=== PATIENT | male | born 1960 | race Caucasian/White ===

== ENCOUNTER 2023-05-09 06:28 | Outpatient (RCR) | payer OTHER, SELFPAY | END 2023-05-09 23:59 | disposition home or self-care (01) | LOC: RPT 06:28 | PROVIDERS: ATTENDING PHYSICIAN Urology; FAMILY PHYSICIAN Internal Medicine Geriatric Medicine | DX: C61 Malignant neoplasm of prostate (principal); M62.89 Other specified disorders of muscle; Z73.6 Limitation of activities due to disability | CPT/HCPCS: 97162; 97530 ==

== ENCOUNTER 2023-06-01 06:14 | Day surgery (SDC) | payer OTHER, SELFPAY ==
[2023-05-16 08:42] LABS: Hematocrit 41.5 % (39.0-52.0); Hemoglobin 14.4 g/dL (13.0-18.0); Mean Corp Hgb Conc. 34.7 g/dL (33.0-37.0); Mean Corpuscular Volume 92.2 fL (80.0-94.0); Mean Platelet Volume 10.3 fL (7.4-10.4); Platelet Count 238 10^3/uL (130-400); Red Cell Dist. Width 12.4 % (11.5-14.5); White Blood Cell Count 6.1 10^3/uL (4.8-10.8)
[2023-05-16 08:54] LABS: Urine Albumin Negative (Neg - Trace); Urine Bilirubin Negative (Negative); Urine Character Clear (Clear); Urine Color Yellow; Urine Glucose Negative (Negative); Urine Ketone Negative (Negative); Urine Leukocyte Trace (Negative); Urine Nitrite Negative (Negative); Urine Occult Blood Negative (Negative); Urine Specific Gravity 1.025 (<1.030); Urine Urobilinogen Negative (Neg - 1+)
[2023-05-16 09:01] LABS: INR 1.09
[2023-05-16 09:02] LABS: APTT 31.8 Sec (23.4-35.0)
[2023-05-16 09:18] LABS: Blood Urea Nitrogen 22 mg/dl (9-20); Calcium 9.3 mg/dl (8.4-10.2); Carbon Dioxide 25 mmol/L (22-30); Chloride 108 mmol/L (98-107); Glucose 88 mg/dl (70-99); Sodium 140 mmol/L (135-145); eGFR > 60.00
[2023-05-16 09:40] LABS: Potassium 4.6 mmol/L (3.5-5.1)
[2023-05-16 10:48] LABS: Urine Red Blood Cell 0-2 /HPF (0-2); Urine White Cell 0-2 /HPF (0-5)
[2023-05-16 14:05] VITALS: BMI 30.1
--- NOTE | 2023-05-25 11:56 | CM ---
Patient is scheduled for a Robotic Prostatectomy on 06/01/23. Spoke with patient prior to surgery via telephone to complete case management assessment and assess for discharge planning needs. Patient reports that he lives with his in a two story
home. There are either two or six steps to enter and a flight of steps to the second floor. He currently functions independently. He has no DME and has never had VN services. He has a prescription plan and uses [facility] in [place].
PCP is Luiza Ryder
Discussed discharge plans. Patient plans to return home at discharge. He states that he will have support from his (who works from home) when he goes home. He has no discharge planning concerns at this time. Discussed possible need for VN
services and reviewed options. Patient states that if services are needed, he has no preference for an agency. Discussed using VN for services and he is agreeable.
[place] text sent to VN liaison, Gracia Lincoln, alerting her to surgery date and possible need for VN.
[2023-06-01] VITALS (11 sets, daily range): BP systolic 116–140; BP diastolic 64–85; BMI 30.1
[2023-06-01] MEDS: NORMOSOL-R 1000 IV (06:35)
--- NOTE | 2023-06-01 13:16 | W.IMMPOSTOP ---
Surgical Immed Post Op Note
-
Primary Surgeon: Jam
Assisting Surgeon: Tu
Pre-op Diagnosis: prostate cancer
Post-op Diagnosis: same
Procedure Performed: Robotic prostatectomy, lymph node dissection
Anesthesia Type: general
Specimen / Cultures: prostate, LNs, frozen specimens
Estimated Blood Loss: 100cc
Complications: none
Operative Findings: possible EPE at L post margin
[2023-06-01] MEDS: DILAUDID 0.5 MG IV (13:27)
[2023-06-01 14:02] LABS: Hematocrit 38.1 % (39.0-52.0); Hemoglobin 13.7 g/dL (13.0-18.0)
[2023-06-01] MEDS: NSS 1000 IV ×2 (14:15→21:06)
[2023-06-01 14:16] LABS: Blood Urea Nitrogen 18 mg/dl (9-20); Calcium 8.5 mg/dl (8.4-10.2); Carbon Dioxide 25 mmol/L (22-30); Chloride 106 mmol/L (98-107); Estimated Creatinine Clearance 92 ml/min; Glucose 162 mg/dl (70-99); Potassium 4.1 mmol/L (3.5-5.1); Sodium 136 mmol/L (135-145); eGFR > 60.00
[2023-06-01] MEDS: TORADOL 15 MG IV ×2 (14:18→21:01)
--- NOTE | 2023-06-01 15:00 | PTCARENOTE ---
pt admitted to room 2101 from the PACU at 1430. pt arrived drowsy but easily arousable. oriented to room, call cuevas, and plan of care with verbalized understanding. admission database and assessment as documented. tolerating ice chips and sips
of water. De Anda catheter patent and draining punch colored urine. pt c/o feeling the urge to void. will monitor.
[2023-06-01] MEDS: SENOKOT 8.59999999999999964 MG PO ×2 (21:00)
[2023-06-01] MEDS: DETROL LA 4 MG PO (22:17)
[2023-06-01] MEDS: MORPHINE SULFATE 4 MG IV (23:04)
[2023-06-02] MEDS: TORADOL IV (02:18)
[2023-06-02 03:35] VITALS: BP 118/71
[2023-06-02 05:45] LABS: Hematocrit 33.2 % (39.0-52.0); Hemoglobin 11.5 g/dL (13.0-18.0); Mean Corp Hgb Conc. 34.6 g/dL (33.0-37.0); Mean Corpuscular Volume 92.5 fL (80.0-94.0); Platelet Count 207 10^3/uL (130-400); Red Blood Cell Count 3.59 10^6/uL (4.70-6.10); Red Cell Dist. Width 12.8 % (11.5-14.5)
[2023-06-02 06:10] LABS: Blood Urea Nitrogen 20 mg/dl (9-20); Carbon Dioxide 28 mmol/L (22-30); Chloride 104 mmol/L (98-107); Estimated Creatinine Clearance 92 ml/min; Glucose 107 mg/dl (70-99); Potassium 3.8 mmol/L (3.5-5.1); Sodium 137 mmol/L (135-145); eGFR > 60.00
[2023-06-02 07:00] VITALS: BP 113/64
[2023-06-02] MEDS: TORADOL 15 MG IV ×2 (08:13→13:22)
--- NOTE | 2023-06-02 08:41 | VNURNOTE ---
Home Health Liaison met with patient's spouse Piedad 05/31 at 1100 to discuss [facility] nurse visits, schedule and homebound status. Piedad is agreeable and understands that visits at home will be 2-3 x per week to assess and teach medical management and
catheter care. Patient was in OR at time of visit.
[facility] brochure provided with contact information. Piedad is aware that [facility] will contact them for start of care in 1-2 days after discharge from .
[facility] referral completed in [facility].
--- NOTE | 2023-06-02 10:17 | W.PN.URO.CBU ---
Today's Communication / Plan
-
Discharge
Assessment / Plan
-
62M with prostate cancer
POD 1 s/p RALP/PLND
- OOB/amb
- Regular diet
- PO pain meds
- Segal to leg bag, home with segal, VN
Discharge
Diagnosis
-
Date of Service: June 02, 2023
-
Patient Diagnosis: Prostate cancer
Post Op Day: 1 s/p RALP
Subjective
-
pain controlled
tolerating diet
ambulated
Objective
-
Vital Signs
Temp Pulse Resp BP Pulse Ox
98.0 F 82 18 113/64 99
06/02/23 07:00 06/02/23 07:00 06/02/23 07:00 06/02/23 07:00 06/02/23 07:00
Intake and Output
06/01/23 06/02/23 06/03/23
06:59 06:59 06:59
Intake Total 1584 / 1584
Output Total 735 / 735
Balance 849 / 849
Intake:
Oral fluids 914 / 914
IV fluids (Total) 670 / 670
norm 170 / 170
Output:
Urine, Segal 735 / 735
Laboratory Results
06/02/23 05:04
06/02/23 05:04
Physical Exam
-
General - well developed, well nourished, no acute distress
Chest - clear bilaterally
Abdomen - soft, non-tender
Segal in place, clear urine
Skin - warm & dry with no rash
Neuro - AOx3, no motor deficits
Incision - clean, dry
Dressing - clean, dry, intact
--- NOTE | 2023-06-02 10:58 | VNURNOTE ---
Home Health Liaison met with patient at to discuss VN nurse visits, schedule and homebound status. Patient is agreeable and understands visits will be 2-3x per week to assess and teach segal catheter management.
[2023-06-02 11:10] VITALS: BP 126/70
--- NOTE | 2023-06-02 14:24 | CM ---
Initial assessment completed with patient who lives with his in a 2 story home with basement, 2 steps to enter, B/B on and 1/2 bath on . Patient was independent SOCIAL SERVICE LIAISON, drives and works. Has a RW in the home, no services, no psychiatric
history. Pharmacy is [facility] on [facility]. in [place], PCP is Dr. Burr with [facility]. Patient will need HH VN.
--- NOTE | 2023-06-02 14:30 | CM ---
Patient has been medically cleared for discharge to home with [facility] VN services. Patient has arranged for transport home.
[2023-06-02 15:05] VITALS: BP 121/71
== END 2023-06-02 16:05 | disposition home or self-care (01) ==
LOC: SDS 06:14
PROVIDERS: ATTENDING PHYSICIAN Urology; FAMILY PHYSICIAN Internal Medicine Geriatric Medicine
DX: C61 Malignant neoplasm of prostate (principal); C77.5 Secondary and unspecified malignant neoplasm of intrapelvic lymph nodes
CPT/HCPCS: 55866; 38571; 88305; 88307; 88309; 88332; 36415; 80048; 81003; 81015; 85014; 85018; 85027; 85610; 85730; 86850; 86900; 86901; 88331; 88341; 88342; 88344; 93005

== ENCOUNTER 2023-07-14 10:30 | Outpatient (RCR) | payer OTHER, SELFPAY | END 2023-07-14 23:59 | disposition home or self-care (01) | LOC: RPT 10:30 | PROVIDERS: ATTENDING PHYSICIAN Urology; FAMILY PHYSICIAN Internal Medicine Geriatric Medicine | DX: C61 Malignant neoplasm of prostate (principal); M62.89 Other specified disorders of muscle; N39.3 Stress incontinence (female) (male); Z73.6 Limitation of activities due to disability | CPT/HCPCS: 97140; 97164; 97530 ==

== ENCOUNTER 2023-07-28 06:45 | Outpatient (RCR) | payer OTHER, SELFPAY | END 2023-07-28 23:59 | disposition home or self-care (01) | LOC: RPT 06:45 | PROVIDERS: ATTENDING PHYSICIAN Urology; FAMILY PHYSICIAN Internal Medicine Geriatric Medicine | DX: M62.89 Other specified disorders of muscle (principal); C61 Malignant neoplasm of prostate; Z73.6 Limitation of activities due to disability | CPT/HCPCS: 97110; 97140; 97530 ==

== ENCOUNTER 2024-02-07 23:56 | Emergency (ER) | payer OTHER, SELFPAY ==
[2024-02-07 23:59] VITALS: BP 159/89
[2024-02-08 00:26] VITALS: BP 153/94
--- NOTE | 2024-02-08 00:28 | ED.GENMED ---
History of Present Illness
<REJI Roach - Last Filed: 02/08/24 02:35>
General
Chief Complaint: Dizziness
Source: patient
Time Seen by Provider: 02/08/24 00:21
Nursing documentation reviewed up to this point in time: agreed with
History of Present Illness
History of Present Illness:
Pt is a 63 yo M with a history of prostate cancer who presents to the emergency department with dizziness for the past few hours. Pt states that he woke up to go to the bathroom during the night and when he went back to bed and laid down, he began
to feel dizzy. Pt describes the dizziness as the room spinning. He explains that it continued to occur when he would open his eyes after sleeping. Pt states that it is worse when he laid down. Pt states that is has been constant since it began, but
states that it is now getting better. Pt denies experiencing this before. Pt also admits to associated nausea and headache that began with the dizziness. He describes the headache as being very mild and is diffusely across his head. Pt denies
syncope, changes in vision, vomiting, fever, chills, weakness, chest pain, changes in hearing, or recent illness.
Pt states that he finished proton therapy in December for treatment of his prostate cancer.
Review of Systems
<REJI Roach - Last Filed: 02/08/24 02:35>
Review of Systems
Allergies reviewed?: Yes
Constitutional: Reports no symptoms
EENT: Reports no symptoms
Respiratory: Reports no symptoms
Cardiac: Reports no symptoms
ABD/GI: Reports nausea
Neurological: Reports dizzy and headache
Phy Exam
<REJI Roach - Last Filed: 02/08/24 02:35>
General Physical Exam
General Presentation: well appearing
General age: appears stated age
General Skin: warm
General Habitus: normal
General Mental: alert
General Hydration: appears well hydrated
Eye Exam
Eye Exam: PERRL, EOMI and conjunctiva normal
Eye Exam General: PERRL: bilateral and EOM intact: bilateral
Cardiovascular Exam
Cardiovascular Exam: regular rate/rhythm
Pulmonary Exam
Pulmonary Exam: lungs clear
Course
<Marnie Forbes [facility] - Last Filed: 02/08/24 02:35>
Orders/Labs/Results
Orders:
Orders
02/08/24
CT Head W/o Iv Contrast Urgent
Reason For Exam: vertigo
02/08/24 00:58
CBC/With Diff [Complete Blood Count/With Diff] Urgent
Comprehensive Metabolic Panel Urgent
02/08/24 02:47
Meclizine [Antivert] 25 mg PO NOW STA
Abnormal Lab Results
02/08/24
00:58
WBC 4.4 L 10^3/uL
(4.8-10.8)
RBC 3.65 L 10^6/uL
(4.70-6.10)
Hgb 12.1 L g/dL
(13.0-18.0)
Hct 34.6 L %
(39.0-52.0)
MCV 94.8 H fL
(80.0-94.0)
MCH 33.2 H pg
(27.0-31.0)
Absolute Lymphs (auto) 0.3 L 10^3/uL
(1.2-3.4)
Immature Gran % 0.7 H %
(0-0.5)
Neutrophils % 79.0 H %
(42.2-75.2)
Lymphocytes % 7.7 L %
(20.5-51.1)
Monocytes % 10.0 H %
(1.7-9.3)
Chloride 109 H mmol/L
(98-107)
BUN 24 H mg/dl
(9-20)
Glucose 110 H mg/dl
(70-99)
02/08/24 00:58
02/08/24 00:58
Vital Signs
Initial and Last Documented VS:
Initial Vital Signs
Temp Pulse Resp BP Pulse Ox
98.6 F 72 20 159/89 98
02/07/24 23:59 02/07/24 23:59 02/07/24 23:59 02/07/24 23:59 02/07/24 23:59
Last Documented Vital Signs
Temp Pulse Resp BP Pulse Ox
98.6 F 57 18 132/88 99
02/07/24 23:59 02/08/24 02:43 02/08/24 02:43 02/08/24 01:05 02/08/24 02:43
<Sammie Peterson, DO - Last Filed: 02/08/24 02:51>
Orders/Labs/Results
Orders:
Orders
02/08/24
CT Head W/o Iv Contrast Urgent
Reason For Exam: vertigo
02/08/24 00:58
CBC/With Diff [Complete Blood Count/With Diff] Urgent
Comprehensive Metabolic Panel Urgent
02/08/24 02:47
Meclizine [Antivert] 25 mg PO NOW STA
Abnormal Lab Results
02/08/24
00:58
WBC 4.4 L 10^3/uL
(4.8-10.8)
RBC 3.65 L 10^6/uL
(4.70-6.10)
Hgb 12.1 L g/dL
(13.0-18.0)
Hct 34.6 L %
(39.0-52.0)
MCV 94.8 H fL
(80.0-94.0)
MCH 33.2 H pg
(27.0-31.0)
Absolute Lymphs (auto) 0.3 L 10^3/uL
(1.2-3.4)
Immature Gran % 0.7 H %
(0-0.5)
Neutrophils % 79.0 H %
(42.2-75.2)
Lymphocytes % 7.7 L %
(20.5-51.1)
Monocytes % 10.0 H %
(1.7-9.3)
Chloride 109 H mmol/L
(98-107)
BUN 24 H mg/dl
(9-20)
Glucose 110 H mg/dl
(70-99)
02/08/24 00:58
02/08/24 00:58
Vital Signs
Initial and Last Documented VS:
Initial Vital Signs
Temp Pulse Resp BP Pulse Ox
98.6 F 72 20 159/89 98
02/07/24 23:59 02/07/24 23:59 02/07/24 23:59 02/07/24 23:59 02/07/24 23:59
Last Documented Vital Signs
Temp Pulse Resp BP Pulse Ox
98.6 F 57 18 132/88 99
02/07/24 23:59 02/08/24 02:43 02/08/24 02:43 02/08/24 01:05 02/08/24 02:43
<REJI Roach - Last Filed: 02/08/24 02:35>
MDM/Problems Addressed
Differential Diagnosis Includes:
Benign paroxysmal positional vertigo, TIA
<REJI Roach - Last Filed: 02/08/24 02:35>
*Critical Care Note
Total Time (30-74mins, 75-104mins- exclusive of procedures): Not Applicable
<Sammie Peterson DO - Last Filed: 02/08/24 02:51>
*Radiology
Radiology exam reviewed: radiology read reviewed (CT of the head is unremarkable)
*Pulse Oximetry
Patient hypoxic: no
*Podiatric Foot And Ankle Specialist Interpretation
Rate: normal
Interpretation: normal
Rhythm: sinus
ED Attending Note
<REJI Roach - Last Filed: 02/08/24 02:35>
-
Portions of this chart may have been created with voice recognition software.� Occasional wrong word or��sound alike� substitutions may have occurred due to the inherent limitations of voice recognition software.
<Sammie Peterson DO - Last Filed: 02/08/24 02:51>
ED Attending Note
Patient seen and examined by attending physician: Yes
I performed the substantive portion of visit, reviewed & personally made and approve the management plan that is documented in note by myself or ADONAY.: Yes
ED Attending Note:
This is a 63-year-old gentleman with history of prostate cancer status post robotic prostatectomy in May of this year and completed proton therapy December of this year. He is maintained on hormone suppressants.
Who presents with abrupt onset of dizziness that began after returning to bed and lying down, after doing so he developed sudden dizziness which she reports as a feeling of the room spinning. Dizziness was much worse with his eyes open, worse with
lying supine. Improved with keeping his eyes closed and improved with sitting up. He admits to brief nausea without vomiting. He also noted very mild generalized headache that began after he got up out of bed and ambulated down the steps.
Headache has since resolved. No neck nor back pain, no fever, no cough, no earache nor tinnitus nor hearing difficulties. No history of similar episodes of dizziness.
He has not taken anything for symptoms and currently is asymptomatic.
He does admit to mildly dry nasal passages with change in weather but denies nasal congestion nor rhinorrhea.
GENERAL: 63-year-old gentleman appears his stated age, bright and alert, pleasant, appears in no acute distress. is accompanying.
EYE: pupils equal and reactive. Extraocular muscles intact, anicteric. Test of skew is negative.
NECK: Supple, nontender, no meningismus, no significant adenopathy.
ENT: posterior pharynx is clear, oral mucosa is moist. TM clear b/l, nares patent.
CARDIAC: Regular rate and rhythm. no murmur.
LUNGS: Clear breath sounds bilaterally, no acute respiratory distress, no wheezes/rales/rhonchi
ABDOMEN: Soft, nondistended, without focal tenderness, no r/g, no cvat. normoactive BS.
NEUROLOGICAL: Alert and oriented x3, no focal neuro deficits. Gait is collins and steady. Cedric-Hallpike is negative. Hints exam is negative but patient is currently asymptomatic.
SKIN: Warm and dry, normal color, skin intact. No rash.
MUSCULOSKELETAL: No C/C/E. peripheral pulses are full and equal b/l. No palpable tenderness.
PSYCH: Normal and appropriate interaction.
Patient presents with acute onset of dizziness. Clearly appears more positional in nature, more suggestive of benign paroxysmal positional vertigo.
Symptom since resolved.
He did note mild headache but symptoms initially began with dizziness/vertiginous symptoms. Headache has since resolved as well.
Due to history of prostate cancer, acute dizziness as well as headache�concern for potential metastatic disease thus CT of the head obtained. CT is unremarkable.
Currently asymptomatic.
Symptoms began while lying supine, denies palpitations, thus arrhythmia is unlikely.
Symptoms are not consistent with orthostasis as well.
Labs are pending.
Will continue to observe. If dizziness recurs will give a dose of meclizine.
02/08/2024 0248 AM
Patient notes minimal intermittent dizziness, most noted with change in position but overall mild and brief in nature.
Labs show mild anemia which is stable and unchanged from previous in May. Mild leukopenia. Minimally elevated BUN of 24 with normal creatinine 0.9.
Will give an oral dose of meclizine now.
Discussed importance of remaining well-hydrated on a daily basis.
Avoid rapid change in position.
Will discharge to home with prescription for as needed meclizine with recommendations for prompt follow-up with PCP for recheck.
Return precautions discussed.
Discharge Plan
Departure
Patient Disposition: Home (Routine Discharge)
Date of Disposition: 02/08/24
Time of Disposition: 02:49
Patient with high blood pressure during this ER visit?: No
Condition: Good
Discharge Problem:
Benign paroxysmal positional vertigo
Instructions: Vertigo (a Type of Dizziness) (DC)
Prescriptions:
New
meclizine 25 mg tablet
25 mg PO QID PRN (Reason: dizziness, nausea) Qty: 20 0RF
No Action
glucosamine-chondroitin 500-400 mg Tablet
3 tab PO DAILY
cholecalciferol (vitamin D3) [Vitamin D3] 50 mcg (2,000 unit) Capsule
50 mcg PO HS
omega 4-mkw-tef-fish oil [Fish Oil] 1,200 (144-216) mg Capsule
1 cap PO HS
Centrum Men 8 mg iron- 200 mcg-600 mcg Tablet
1 tab PO DAILY
Cholest Off Plus 450 mg Capsule
900 mg PO DAILY
Vitamin C, Zinc, Elderberry
1 tab PO BID
oxycodone-acetaminophen 5-325 mg Tablet
1 tab PO Q4HPRN PRN (Reason: moderate pain) Qty: 10 0RF
Referrals:
Luiza Ryder MD [Family Provider] - Call in 1-3 days for appt
Interventions
Interventions:
*Risk Screen - Suicide Last Done: 02/07/24 23:59
*General Assessment Last Done: 02/08/24 01:10
*Neglect/Abuse Screening Last Done: 02/07/24 23:59
ED- Fall Risk Assessment Last Done: 02/08/24 01:17
*ED COVID-19 Vaccine History Last Done: 02/07/24 23:59
ED- Neurological Assessment Last Done: 02/08/24 01:10
ED- Cardiac Assessment Last Done: 02/08/24 01:17
ED Swallowing Screen Last Done: 02/08/24 01:21
Discharge Date and Time
Print Language: [place]
[2024-02-08 01:05] VITALS: BP 132/88
[2024-02-08 01:10] VITALS: BMI 28.8
[2024-02-08 01:13] LABS: % Basophils 0.5 % (0-2); % Eosinophils 2.1 % (0-6); % Immature Granulocytes 0.7 % (0-0.5); % Lymphocytes 7.7 % (20.5-51.1); Absolute Eosinophils 0.1 10^3/uL (0-0.7); Absolute Lymphocytes 0.3 10^3/uL (1.2-3.4); Absolute Monocytes 0.4 10^3/uL (0.1-0.6); Absolute Neutrophils 3.5 10^3/uL (1.4-6.5); Hematocrit 34.6 % (39.0-52.0); Hemoglobin 12.1 g/dL (13.0-18.0); Mean Corpuscular Hgb 33.2 pg (27.0-31.0); Mean Corpuscular Volume 94.8 fL (80.0-94.0); Mean Platelet Volume 9.4 fL (7.4-10.4); Nucleated Red Blood Cells % 0 % (-); Platelet Count 192 10^3/uL (130-400); Red Blood Cell Count 3.65 10^6/uL (4.70-6.10); Red Cell Dist. Width 14.1 % (11.5-14.5); White Blood Cell Count 4.4 10^3/uL (4.8-10.8)
[2024-02-08 01:34] LABS: ALT (SGPT) 24 U/L (0-50); AST (SGOT) 28 U/L (17-59); Albumin 4.1 g/dl (3.5-5.0); Alkaline Phosphatase 105 U/L (38-126); Blood Urea Nitrogen 24 mg/dl (9-20); Calcium 9.4 mg/dl (8.4-10.2); Carbon Dioxide 25 mmol/L (22-30); Chloride 109 mmol/L (98-107); Estimated Creatinine Clearance 83 ml/min; Glucose 110 mg/dl (70-99); Potassium 3.8 mmol/L (3.5-5.1); Sodium 144 mmol/L (135-145); Total Bilirubin 0.4 mg/dl (0.2-1.3); Total Protein 6.6 g/dl (6.3-8.2); eGFR > 60.00
[2024-02-08 03:00] VITALS: BP 132/83
[2024-02-08] MEDS: ANTIVERT 25 MG PO (03:00)
== END 2024-02-08 03:10 | disposition home or self-care (01) ==
LOC: EMR 23:56
PROVIDERS: EMERGENCY PHYSICIAN Emergency Medicine; FAMILY PHYSICIAN Internal Medicine Geriatric Medicine
DX: H81.10 Benign paroxysmal vertigo, unspecified ear (principal)
CPT/HCPCS: 99284; 70450; 80053; 85025

== ENCOUNTER → 2024-09-12 09:57 | Outpatient (REF) | payer OTHER, SELFPAY | LOC: RAD 09:57 | PROVIDERS: ATTENDING PHYSICIAN Nurse Practitioner Adult Health; FAMILY PHYSICIAN Family Medicine | DX: C61 Malignant neoplasm of prostate (principal) | CPT/HCPCS: 73502; 73552 ==